=== PATIENT | female | born 1955 | race Caucasian/White ===

== ENCOUNTER → 2018-08-20 17:59 | Outpatient (CLI) | payer MEDICARE, SELFPAY ==
[2018-05-10 15:35] VITALS: BMI 21.1
== END ==
PROVIDERS: Family Provider Family Medicine; PCP Family Medicine; Referring Provider Nurse Practitioner Women's Health; Visit Provider Nurse Practitioner Women's Health
DX: N76.1 Subacute and chronic vaginitis (principal)
CPT/HCPCS: 87070; 87205

== ENCOUNTER → 2022-07-29 | Outpatient (CLI) | payer MEDICARE, SELFPAY ==
--- NOTE | 2022-07-29 15:23 | US_ITS ---
INDICATION: post menopausal bleeding EXAMINATION: Ultrasound US Pelvis Non OB Complete With Transvaginal Imaging TECHNIQUE: Transabdominal and transvaginal pelvic ultrasound was performed. Grayscale, spectral waveform, and color flow Doppler evaluation of the adnexa. COMPARISON: None. FINDINGS: UTERUS: Anteverted. The uterus measures 6.7 x 2.4 x 4.1 cm. No circumscribed uterine mass is noted however diffusely heterogeneous appearance of the myometrium. The endometrial stripe measures 1.6 mm in AP diameter which is within normal limits. RIGHT OVARY: Not visualized LEFT OVARY: Not visualized. FREE FLUID: None. BLADDER: Bladder has normal configuration with estimated volume of 111 mL. US/Pelvic (Non ) IMPRESSION: 1. Heterogeneous appearance of the myometrium without evidence of circumscribed masses or abnormal blood flow. 2. Endometrium measures 1.6 mm in thickness without evidence of endometrial masses abnormal blood flow or fluid. 3. Neither the RIGHT nor the LEFT ovary are identified. Likely contributed by senescent changes and obscuring bowel. No evidence of ovarian or adnexal masses, abnormal blood flow or free fluid. Electronically Signed: Dionte Jay MD at 17:36 EST ,
== END | disposition home or self-care (01) ==
PROVIDERS: PCP Family Medicine; Referring Provider Nurse Practitioner Women's Health; Visit Provider Nurse Practitioner Women's Health
DX: N95.0 Postmenopausal bleeding (principal)
CPT/HCPCS: 76830; 76856